=== PATIENT | female | born 1975 | race Caucasian/White ===

== ENCOUNTER 2019-01-27 14:10 | Emergency (ER) | payer MEDICAID ==
[~2019-01-27] VITALS: Ht 162.6 cm; Wt 59.1 kg
[2019-01-27 14:50] VITALS: Ht 162.6 cm; Wt 59.1 kg
[2019-01-27] MEDS ORDERED: SYNTHROID125 MCG PO (14:52)
[2019-01-27] MEDS ORDERED: PERMETHRIN60 GM TOPICAL (15:35)
[2019-01-27 15:46] VITALS: BP 122/76
== END 2019-01-27 15:47 | disposition home or self-care (01) ==
LOC: D.ER 14:10
DX: S80.862A Insect bite (nonvenomous), left lower leg, initial encounter (principal); S80.861A Insect bite (nonvenomous), right lower leg, initial encounter; W57.XXXA Bitten or stung by nonvenomous insect and other nonvenomous arthropods, initial encounter; Y93.89 Activity, other specified; Y92.89 Other specified places as the place of occurrence of the external cause

== ENCOUNTER 2020-02-24 15:09 | Emergency (ER) | payer MEDICAID ==
[~2020-02-24] VITALS: Ht 162.6 cm; Wt 63.6 kg
[~2020-02-24 15:09] MED LIST: PERMETHRIN60 GM TOPICAL; SYNTHROID125 MCG PO
[2020-02-24 15:15] VITALS: Ht 162.6 cm; Wt 63.6 kg
[2020-02-24] MEDS ORDERED: VALIUM 2 MG TAB2 MG PO (15:18)
[2020-02-24] MEDS ORDERED: KEFLEX500 MG PO (15:42)
[2020-02-24] MEDS ORDERED: MUPIROCIN15 GM TOPICAL (15:42)
[2020-02-24 15:49] VITALS: BP 118/68
== END 2020-02-24 15:50 | disposition home or self-care (01) ==
LOC: D.ER 15:09
DX: L03.90 Cellulitis, unspecified (principal); R20.2 Paresthesia of skin; R10.9 Unspecified abdominal pain; R21 Rash and other nonspecific skin eruption; E03.9 Hypothyroidism, unspecified; N93.9 Abnormal uterine and vaginal bleeding, unspecified; R11.0 Nausea